=== PATIENT | female | born 1995 | race Caucasian/White ===

== ENCOUNTER 2022-12-05 22:42 | Emergency (ER) | payer SELFPAY ==
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
[2022-12-05 23:35] VITALS: BP 146/66
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
== END 2022-12-05 23:35 ==
LOC: ER FS 22:51
DX: M54.6 Pain in thoracic spine (principal); R41.82 Altered mental status, unspecified; F17.210 Nicotine dependence, cigarettes, uncomplicated
CPT/HCPCS: 70450; 72128